=== PATIENT | female | born 1985 | race Caucasian/White ===

== ENCOUNTER 2017-03-22 21:37 | Inpatient (IN) | payer BC ==
[2017-03-23] MEDS ORDERED: Sodium Chloride 0.9% 10 ML Syringe FLUSH PRN (01:00)
[2017-03-23] MEDS ORDERED: Water For Irrigation,Sterile 1,000 ML Container IRR PRN (01:00)
[2017-03-23] MEDS ORDERED: Oxytocin/Lactated Ringers 30 UNIT/500 ML BAG IV SCH ×2 (01:00→07:45)
[2017-03-23] MEDS ORDERED: Lactated Ringers 1,000 ML IV SCH (01:00)
[2017-03-23] MEDS ORDERED: Butorphanol 1 MG/ML SDV IVPUSH PRN (01:00)
[2017-03-23] MEDS ORDERED: Nalbuphine 10 MG/1 ML Vial IVPUSH PRN (01:00)
[2017-03-23] MEDS ORDERED: Methylergonovine 0.2 MG/1 ML Amp IM PRN (01:00)
[2017-03-23] MEDS ORDERED: Misoprostol 200 MCG Tab PO PRN (01:00)
[2017-03-23] MEDS ORDERED: Lidocaine 1% 50 ML MDV INJECT PRN (01:00)
[2017-03-23] MEDS ORDERED: Carboprost Tromethamine 250 MCG/1 ML Amp IM PRN (01:00)
[2017-03-23] MEDS ORDERED: Sodium Chloride 0.9% 2.5 ML Syringe FLUSH PRN (01:00)
--- NOTE | 2017-03-23 02:09 | PCM.PREANE ---
Preanesthetic Assessment - Anesthesia/Transfusion/Family Hx Anesthesia History: Prior Anesthesia Without Reaction - Review of Systems General: No Symptoms Pulmonary: No Symptoms Cardiovascular: No Symptoms Gastrointestinal: No symptoms Neurological: No Symptoms Other: Reports: None - Physical Assessment Height: 5 ft 8 in Weight: 101.151 kg ASA Class: 2 Mental Status: Alert & Oriented x3 Airway Class: Mallampati = 2 Dentition: Reports: Normal Dentition Thyro-Mental Finger Breadths: 3 Mouth Opening Finger Breadths: 3 ROM/Head Extension: Full Lungs: Clear to auscultation, Normal respiratory effort Cardiovascular: Regular Rate, Regular Rhythm - Lab Values: Laboratory Last Values WBC 22.18 K/uL (4.0-11.0) H 03/23/17 01:08 RBC 4.45 M/uL (4.30-5.90) 03/23/17 01:08 Hgb 13.2 g/dL (12.0-16.0) 03/23/17 01:08 Hct 37.6 % (36.0-46.0) 03/23/17 01:08 MCV 84.5 fL (80.0-98.0) 03/23/17 01:08 MCH 29.7 pg (27.0-32.0) 03/23/17 01:08 MCHC 35.1 g/dL (31.0-37.0) 03/23/17 01:08 RDW Std Deviation 37.1 fl (28.0-62.0) 03/23/17 01:08 RDW Coeff of Aurelio 12 % (11.0-15.0) 03/23/17 01:08 Plt Count 193 K/uL (150-400) 03/23/17 01:08 MPV 10.00 fL (7.40-12.00) 03/23/17 01:08 - Allergies Allergies/Adverse Reactions: Allergies Allergy/AdvReac Type Severity Reaction Status Date / Time NSAIDS (Non-Steroidal Allergy Rash Verified 03/23/17 00:59 Anti-Inflamma - Acknowledgements Anesthesia Type Planned: Epidural Pt an Appropriate Candidate for the Planned Anesthesia: Yes Alternatives and Risks of Anesthesia Discussed w Pt/Guardian: Yes Pt/Guardian Understands and Agrees with Anesthesia Plan: Yes PreAnesthesia Questionnaire HEENT History: Reports: None Cardiovascular History: Reports: None Gastrointestinal History: Reports: None Genitourinary History: Reports: None 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 LMP (Approximate): Musculoskeletal History: Reports: None Neurological History: Reports: None Psychiatric History: Reports: None Endocrine/Metabolic History: Reports: Obesity/BMI 30+ Hematologic History: Reports: None Immunologic History: Reports: None Oncologic (Cancer) History: Reports: None Dermatologic History: Reports: None - Infectious Disease History Infectious Disease History: Reports: None - Past Surgical History Musculoskeletal Surgical History: Reports: Other (See Below) (Foot surgery) Dermatological Surgical History: Reports: Other (See Below) (Breast augmentation ) - CURRENT (IN HOUSE) MEDS Current Meds: Current Medications Butorphanol Tartrate (Stadol) 1 mg IVPUSH Q1H PRN PRN Reason: Pain Last Admin: 03/23/17 01:53 Dose: 1 mg Carboprost Tromethamine (Hemabate Ds) 250 mcg IM ASDIRECTED PRN PRN Reason: Post Hemorrhage Lactated Ringer's (Ringers, Lactated) 1,000 mls @ 150 mls/hr IV ASDIRECTED AIXA Lidocaine HCl (Xylocaine 1%) 50 ml INJECT .ONCE PRN PRN Reason: Laceration repair Methylergonovine Maleate (Methergine) 0.2 mg IM ASDIRECTED PRN PRN Reason: Post Hemorrhage Misoprostol (Cytotec) 200 mcg PO .ONCE PRN PRN Reason: Post Hemorrhage Nalbuphine HCl (Nubain) 10 mg IVPUSH Q1H PRN PRN Reason: Pain (severe 7-10) Stop: 03/23/17 03:01 Sodium Chloride (Saline Flush) 10 ml FLUSH ASDIRECTED PRN PRN Reason: Keep Vein Open Sodium Chloride (Saline Flush) 2.5 ml FLUSH ASDIRECTED PRN PRN Reason: Keep Vein Open Sterile Water (Sterile Water For Irrigation) 1,000 ml IRR ASDIRECTED PRN PRN Reason: delivery Discontinued Medications Oxytocin/Lactated Ringer's (Pitocin In Lr 30 Units/500 Ml) 30 unit in 500 mls @ 999 mls/hr IV TITRATE AIXA; 999 MUNITS/MIN PRN Reason: Protocol Stop: 03/23/17 01:31
[2017-03-23] MEDS ORDERED: Ropivacaine HCl/PF 100 ML ONE ×2 (02:12→09:27)
[2017-03-23] MEDS ORDERED: fentaNYL 100 MCG/2 ML SDV ONE (02:12)
[2017-03-23] MEDS ORDERED: ePHEDrine 50 MG/ML SDV ONE (06:03)
[2017-03-23] MEDS ORDERED: Acetaminophen 500 MG Tab PO ONE (11:13)
[2017-03-23] MEDS ORDERED: Bisacodyl 10 MG Supp RECTAL PRN (14:22)
[2017-03-23] MEDS ORDERED: Witch Hazel Medicated Pads 40/Jar TOP PRN (14:22)
[2017-03-23] MEDS ORDERED: Benzocaine/Menthol 20%-0.5% Spray 78 GM Cannister TOP PRN (14:22)
[2017-03-23] MEDS ORDERED: Docusate Sodium 100 MG Cap PO PRN (14:22)
[2017-03-23] MEDS: oxyCODONE 5 MG Tab PO PRN ×2 (15:42→18:37)
[2017-03-23] MEDS: Acetaminophen 500 MG Tab PO PRN ×3 (15:43→23:37)
--- NOTE | 2017-03-23 21:11 | OR ---
SURGEON: Melva Hemphill DATE OF PROCEDURE: 03/23/2017 BRIEF PREDELIVERY HISTORY: This is a 31-year-old, G1, P0, presented to Labor and Delivery at 39 weeks and 3 days with complaints of painful uterine contractions. The patient was examined initially and found to be 2 cm and then progressed to 4 cm. The patient was admitted. The patient did receive her epidural. The patient eventually attempted to do an amniotomy, which the patient was already ruptured. The patient several hours later was still 5 to 6 cm dilated with no significant cervical change. The patient was augmented with IV Pitocin. The patient eventually progressed to complete status and started maternal expulsive efforts. Of note, there was a category 1 tracing on the patient's admission and baby did well throughout labor. PREOPERATIVE DIAGNOSES: 1. Intrauterine at 39 weeks and 3 days. 2. Group B streptococcus. 3. Labor. 4. Maternal pyrexia. POSTOPERATIVE DIAGNOSES: 1. Intrauterine at 39 weeks and 3 days. 2. Deliver status. 3. Second-degree midline laceration. PROCEDURE PERFORMED: 1. Spontaneous-assisted vaginal delivery. 2. Repair of midline perineal laceration. ANESTHESIA TYPE: Epidural and local. ESTIMATED BLOOD LOSS: 125 mL. FINDINGS: A viable female in vertex presentation with Apgars of 9 and 10 at 1 and 5 minutes respectively and weight of 3340 g. Calcified intact placenta with 3- vessel cord. Midline second-degree perineal laceration. COMPLICATIONS: None known. DISPOSITION: The patient and tolerated the procedure well. DESCRIPTION OF PROCEDURE: This female under epidural anesthesia delivered a viable female infant with Apgars of 9 and 10 at 1 and 5 minutes respectively. Delivery was via SAVD and weight was 3340 g. After the delivery of the in vertex, the neck was checked. There was no nuchal to be reduced and with gentle downward traction, the anterior shoulder was delivered followed by the body. The infant was bulb suctioned at delivery and had a spontaneous cry. The was placed directly on the Mom's abdomen at maternal request. Cord was doubly clamped, cut, and cord blood was collected and sent for analysis. Of note, prior to delivery the patient's heart tracing was noted to be tachycardic in the 180s and the patient had a headache. The patient did receive 1 g of p.o. Tylenol. Of note, the patient did not have a temperature at this time. Eventually, the patient was noted to have a temperature of 100.8 immediately and the also had a temperature of 100.6. Otherwise, IV Pitocin was given as an uterotonic to prevent excessive maternal blood loss and help expel the placenta. With signs of placental separation, a fundal massage was completed in addition to traction on the umbilical cord. A normal intact placenta with 3-vessel cord was delivered. After delivery of the infant and placenta, the vagina, perineum, and rectum were explored and the patient's midline second-degree perineal laceration. The patient's perineal skin was tested to know how much sensation the patient still had left and 1% lidocaine with no epinephrine. The lidocaine had to be used to infiltrate the perineal tissues for analgesia during the repair. 3-0 Vicryl suture was used to repair the second-degree perineal laceration in a three-layer usual fashion. Afterwards, the lower uterine segment and vagina were cleared of all clots and debris. The patient was cleansed. Pads were changed and the bed was returned to functioning status. The patient and the tolerated the procedure well. Sponge, lap, needle, and instrument counts were correct. SULY / MARJORIE /[id number] ANETA
--- NOTE | 2017-03-24 07:50 | PCM48HPAN ---
Post Anesthesia Note - EVALUATION WITHIN 48HRS OF ANESTHETIC Vital Signs in Normal Range: Yes Patient Participated in Evaluation: Yes Respiratory Function Stable: Yes Airway Patent: Yes Cardiovascular Function Stable: Yes Hydration Status Stable: Yes Pain Control Satisfactory: Yes Nausea and Vomiting Control Satisfactory: Yes Mental Status Recovered: Yes
--- NOTE | 2017-03-24 10:18 | PCM.PNPP ---
- General Info Date of Service: 03/24/17 Functional Status: Reports: pain controlled, tolerating diet, ambulating, urinating - Review of Systems General: Reports: No Symptoms HEENT: Reports: no symptoms Pulmonary: Reports: no symptoms Cardiovascular: Reports: No Symptoms Gastrointestinal: Reports: No symptoms Genitourinary: Reports: no symptoms Musculoskeletal: Reports: no symptoms Skin: Reports: no symptoms Neurological: Reports: No Symptoms Psychiatric: Reports: no symptoms - General Info Date of Service: 03/24/17 - Patient Data Vital Signs - most recent: Last Vital Signs Temp 36.9 C 03/24/17 08:00 Pulse 88 03/24/17 08:00 Resp 16 03/24/17 08:00 BP 133/73 03/24/17 08:00 Pulse Ox 97 03/24/17 04:00 Weight - most recent: 101.151 kg Lab Results - last 24 hrs: Laboratory Results - last 24 hr 03/24/17 Range/Units 05:25 Hgb 11.0 L (12.0-16.0) g/dL Hct 32.4 L (36.0-46.0) % Med Orders - Current: Current Medications Acetaminophen (Tylenol Extra Strength) 500 mg PO Q4H PRN PRN Reason: Pain Last Admin: 03/23/17 18:38 Dose: 500 mg Acetaminophen (Tylenol Extra Strength) 1,000 mg PO Q4H PRN PRN Reason: Pain Last Admin: 03/23/17 23:37 Dose: 1,000 mg Benzocaine/Menthol (Dermoplast Pain Relief 20%-0.5% [place]) 78 gm TOP ASDIRECTED PRN PRN Reason: Perineal Comfort Measure Bisacodyl (Dulcolax) 10 mg RECTAL .ONCE PRN PRN Reason: Constipation Butorphanol Tartrate (Stadol) 1 mg IVPUSH Q1H PRN PRN Reason: Pain Last Admin: 03/23/17 01:53 Dose: 1 mg Carboprost Tromethamine (Hemabate Ds) 250 mcg IM ASDIRECTED PRN PRN Reason: Post Hemorrhage Docusate Sodium (Colace) 100 mg PO BID PRN PRN Reason: Constipation Emollient Ointment (Lansinoh Hpa) 0 gm TOP ASDIRECTED PRN PRN Reason: Sore Nipples Lactated Ringer's (Ringers, Lactated) 1,000 mls @ 150 mls/hr IV ASDIRECTED AIXA Last Admin: 03/23/17 01:36 Dose: 150 mls/hr Oxytocin/Lactated Ringer's (Pitocin In Lr 30 Units/500 Ml) 30 unit in 500 mls @ 2 mls/hr IV TITRATE AIXA; 2 MUNITS/MIN PRN Reason: Protocol Last Titration: 03/23/17 13:19 Dose: 500 munits/min, 500 mls/hr Lidocaine HCl (Xylocaine 1%) 50 ml INJECT .ONCE PRN PRN Reason: Laceration repair Last Admin: 03/23/17 13:25 Dose: 50 ml Methylergonovine Maleate (Methergine) 0.2 mg IM ASDIRECTED PRN PRN Reason: Post Hemorrhage Misoprostol (Cytotec) 200 mcg PO .ONCE PRN PRN Reason: Post Hemorrhage Oxycodone HCl (Oxycodone) 5 mg PO Q2H PRN PRN Reason: Pain Last Admin: 03/23/17 18:37 Dose: 5 mg Sodium Chloride (Saline Flush) 10 ml FLUSH ASDIRECTED PRN PRN Reason: Keep Vein Open Sodium Chloride (Saline Flush) 2.5 ml FLUSH ASDIRECTED PRN PRN Reason: Keep Vein Open Sterile Water (Sterile Water For Irrigation) 1,000 ml IRR ASDIRECTED PRN PRN Reason: delivery Last Admin: 03/23/17 13:15 Dose: 1,000 ml Witch Jennifer (Tucks) 1 pad TOP ASDIRECTED PRN PRN Reason: comfort care Discontinued Medications Acetaminophen (Tylenol Extra Strength) 1,000 mg PO ONETIME ONE Stop: 03/23/17 11:14 Last Admin: 03/23/17 11:31 Dose: 1,000 mg Ephedrine Sulfate (Ephedrine Sulfate) Confirm Administered Dose 50 mg .ROUTE .STK-MED ONE Stop: 03/23/17 06:04 Fentanyl (Sublimaze) Confirm Administered Dose 100 mcg .ROUTE .STK-MED ONE Stop: 03/23/17 02:13 Oxytocin/Lactated Ringer's (Pitocin In Lr 30 Units/500 Ml) 30 unit in 500 mls @ 999 mls/hr IV TITRATE AIXA; 999 MUNITS/MIN PRN Reason: Protocol Stop: 03/23/17 01:31 Ropivacaine (Naropin 0.2%) Confirm Administered Dose 100 mls @ as directed .ROUTE .STK-MED ONE Stop: 03/23/17 02:13 Ropivacaine (Naropin 0.2%) Confirm Administered Dose 100 mls @ as directed .ROUTE .STK-MED ONE Stop: 03/23/17 09:28 Nalbuphine HCl (Nubain) 10 mg IVPUSH Q1H PRN PRN Reason: Pain (severe 7-10) Stop: 03/23/17 03:01 - Infant Interaction Infant Disposition, : [place] at Bedside Interaction: Holding Infant Feeding: Attempted ; Nursed Fair/Poor Support Person: - Recovery Exam Fundal Tone: Firm Fundal Level: At Umbilicus Fundal Placement: Midline Lochia Amount: Scant Lochia Color: Rubra/Red Perineum Description: Intact, Minimal Bruising/Swelling Episiotomy/Laceration: Approximated Bladder Status: Voiding Urinary Elimination: Voided - Exam General: alert, oriented Neck: supple Lungs: Clear to auscultation, Normal respiratory effort Cardiovascular: Regular Rate, Regular Rhythm Abdomen: bowel sounds present, soft, no tenderness Extremities: no calf tenderness Skin: warm, dry, intact Neurological: no new focal deficit Psy/Mental Status: alert, normal affect, normal mood - Problem List & Annotations (1) Vaginal delivery SNOMED Code(s): 942209579 Code(s): O80 - ENCOUNTER FOR FULL-TERM UNCOMPLICATED DELIVERY Status: Acute Current Visit: Yes - Problem List Review Problem List Initiated/Reviewed/Updated: Yes - My Orders Last 24 Hours: My Active Orders 03/23/17 14:22 Patient Status [ADT] Routine May Shower [RC] ASDIRECTED Up ad [place] [RC] ASDIRECTED Vital Signs [RC] PER UNIT ROUTINE Acetaminophen [Tylenol Extra Strength] 1,000 mg PO Q4H PRN Acetaminophen [Tylenol Extra Strength] 500 mg PO Q4H PRN Benzocaine/Menthol [Dermoplast Pain Relief 20%-0.5% [place]] 78 gm TOP ASDIRECTED PRN Bisacodyl [Dulcolax] 10 mg RECTAL .ONCE PRN Docusate Sodium [Colace] 100 mg PO BID PRN Lanolin [Lansinoh HPA] See Dose Instructions TOP ASDIRECTED PRN Puma Rodriguez [Tucks] 1 pad TOP ASDIRECTED PRN oxyCODONE 5 mg PO Q2H PRN Assess Lochia [WOMSER] Per Unit Routine Assess Uterine Involution [WOMSER] Per Unit Routine Breast Pump [WOMSER] Per Unit Routine Peripheral IV Discontinue [OM.PC] Routine 03/23/17 14:23 Ice Therapy [OM.PC] Per Unit Routine Perineal Care [OM.PC] Per Unit Routine Sitz Bath [OM.PC] Per Unit Routine 03/23/17 Lunch Regular Diet [DIET] - Assessment Assessment:: PPD#1 S/p SAVD w/ maternal pyrexia Doing well Breast feeding Anticipate discharge home tomorrow 2nd to being on IV abx - Plan Plan:: Increase ambulation Routine ppc
[2017-03-24] MEDS: Acetaminophen 500 MG Tab PO PRN ×2 (12:14→17:58)
[2017-03-24] MEDS: oxyCODONE 5 MG Tab PO PRN (17:57)
[2017-03-25] MEDS: Lanolin 100% Cream 7 GM Tube TOP PRN ×2 (04:35→11:58)
--- NOTE | 2017-03-25 08:38 | PCM.PNPP ---
- General Info Functional Status: Reports: pain controlled, tolerating diet, ambulating, urinating - Review of Systems General: Reports: No Symptoms HEENT: Reports: no symptoms Pulmonary: Reports: no symptoms Cardiovascular: Reports: No Symptoms Gastrointestinal: Reports: No symptoms Genitourinary: Reports: no symptoms Musculoskeletal: Reports: no symptoms Skin: Reports: no symptoms Neurological: Reports: No Symptoms Psychiatric: Reports: no symptoms - Patient Data Vital Signs - most recent: Last Vital Signs Temp 36.4 C 03/25/17 04:00 Pulse 77 03/25/17 04:00 Resp 15 03/25/17 04:00 BP 125/60 03/25/17 04:00 Pulse Ox 97 03/25/17 04:00 Weight - most recent: 101.151 kg Med Orders - Current: Current Medications Acetaminophen (Tylenol Extra Strength) 500 mg PO Q4H PRN PRN Reason: Pain Last Admin: 03/24/17 17:58 Dose: 500 mg Acetaminophen (Tylenol Extra Strength) 1,000 mg PO Q4H PRN PRN Reason: Pain Last Admin: 03/24/17 12:14 Dose: 1,000 mg Benzocaine/Menthol (Dermoplast Pain Relief 20%-0.5% [place]) 78 gm TOP ASDIRECTED PRN PRN Reason: Perineal Comfort Measure Bisacodyl (Dulcolax) 10 mg RECTAL .ONCE PRN PRN Reason: Constipation Butorphanol Tartrate (Stadol) 1 mg IVPUSH Q1H PRN PRN Reason: Pain Last Admin: 03/23/17 01:53 Dose: 1 mg Carboprost Tromethamine (Hemabate Ds) 250 mcg IM ASDIRECTED PRN PRN Reason: Post Hemorrhage Docusate Sodium (Colace) 100 mg PO BID PRN PRN Reason: Constipation Emollient Ointment (Lansinoh Hpa) 0 gm TOP ASDIRECTED PRN PRN Reason: Sore Nipples Last Admin: 03/25/17 04:35 Dose: 1 tube Lactated Ringer's (Ringers, Lactated) 1,000 mls @ 150 mls/hr IV ASDIRECTED AIXA Last Admin: 03/23/17 01:36 Dose: 150 mls/hr Oxytocin/Lactated Ringer's (Pitocin In Lr 30 Units/500 Ml) 30 unit in 500 mls @ 2 mls/hr IV TITRATE AIXA; 2 MUNITS/MIN PRN Reason: Protocol Last Titration: 03/23/17 13:19 Dose: 500 munits/min, 500 mls/hr Lidocaine HCl (Xylocaine 1%) 50 ml INJECT .ONCE PRN PRN Reason: Laceration repair Last Admin: 03/23/17 13:25 Dose: 50 ml Methylergonovine Maleate (Methergine) 0.2 mg IM ASDIRECTED PRN PRN Reason: Post Hemorrhage Misoprostol (Cytotec) 200 mcg PO .ONCE PRN PRN Reason: Post Hemorrhage Oxycodone HCl (Oxycodone) 5 mg PO Q2H PRN PRN Reason: Pain Last Admin: 03/24/17 17:57 Dose: 5 mg Sodium Chloride (Saline Flush) 10 ml FLUSH ASDIRECTED PRN PRN Reason: Keep Vein Open Sodium Chloride (Saline Flush) 2.5 ml FLUSH ASDIRECTED PRN PRN Reason: Keep Vein Open Sterile Water (Sterile Water For Irrigation) 1,000 ml IRR ASDIRECTED PRN PRN Reason: delivery Last Admin: 03/23/17 13:15 Dose: 1,000 ml Witch Jennifer (Tucks) 1 pad TOP ASDIRECTED PRN PRN Reason: comfort care Discontinued Medications Acetaminophen (Tylenol Extra Strength) 1,000 mg PO ONETIME ONE Stop: 03/23/17 11:14 Last Admin: 03/23/17 11:31 Dose: 1,000 mg Ephedrine Sulfate (Ephedrine Sulfate) Confirm Administered Dose 50 mg .ROUTE .STK-MED ONE Stop: 03/23/17 06:04 Fentanyl (Sublimaze) Confirm Administered Dose 100 mcg .ROUTE .STK-MED ONE Stop: 03/23/17 02:13 Oxytocin/Lactated Ringer's (Pitocin In Lr 30 Units/500 Ml) 30 unit in 500 mls @ 999 mls/hr IV TITRATE AIXA; 999 MUNITS/MIN PRN Reason: Protocol Stop: 03/23/17 01:31 Ropivacaine (Naropin 0.2%) Confirm Administered Dose 100 mls @ as directed .ROUTE .STK-MED ONE Stop: 03/23/17 02:13 Ropivacaine (Naropin 0.2%) Confirm Administered Dose 100 mls @ as directed .ROUTE .STK-MED ONE Stop: 03/23/17 09:28 Nalbuphine HCl (Nubain) 10 mg IVPUSH Q1H PRN PRN Reason: Pain (severe 7-10) Stop: 03/23/17 03:01 - Infant Interaction Disposition, : [place] at Bedside Interaction: Holding Feeding: Attempted ; Nursed Fair/Poor Support Person: - Recovery Exam Fundal Tone: Firm Fundal Level: 1 Fingerbreadths Below Umbilicus Fundal Placement: Midline Lochia Amount: Scant Lochia Color: Rubra/Red Perineum Description: Intact, Minimal Bruising/Swelling Episiotomy/Laceration: Approximated Bladder Status: Voiding Urinary Elimination: Voided - Exam General: alert, oriented HEENT: Pupils equal Neck: supple Lungs: Normal respiratory effort Abdomen: soft, no tenderness, no distension Extremities: No: no edema (trace) Skin: warm, dry, intact Neurological: no new focal deficit Psy/Mental Status: alert, normal affect, normal mood - Problem List & Annotations (1) Vaginal delivery SNOMED Code(s): 653052651 Code(s): O80 - ENCOUNTER FOR FULL-TERM UNCOMPLICATED DELIVERY Status: Acute Current Visit: Yes - Problem List Review Problem List Initiated/Reviewed/Updated: Yes - Assessment Assessment:: PPD#2 after vaginal delivery. Stable, afebrile since immediate period , is going well, minimal lochia. Waiting on cultures for baby, so will discharge her to a parent room today as cultures will not be back until tomorrow am. - Plan Plan:: Discharge instructions reviewed. Reviewed normal mood changes and she will call if she has any concerns regarding depression.
[2017-03-25] MEDS: oxyCODONE 5 MG Tab PO PRN (11:47)
[2017-03-25] MEDS: Acetaminophen 500 MG Tab PO PRN (11:48)
[2017-03-25 13:11] VITALS: BP 128/73
== END 2017-03-25 16:35 | disposition home or self-care (01) | DRG 560 ==
LOC: MW.OBCHECK 21:37 → MW.OB 21:38 → MW.OBCHECK 03-23 01:00 → OBSVTOIN 03-23 13:17 → MW.OB 03-23 20:32
PROVIDERS: ADMIT Obstetrics & Gynecology; ATTEND Obstetrics & Gynecology
PROC: 10E0XZZ Delivery of Products of Conception, External Approach (ICD-10-PCS; principal; 2017-03-23)
PROC: 0KQM0ZZ Repair Perineum Muscle, Open Approach (ICD-10-PCS; 2017-03-23)
DX: O70.1 Second degree perineal laceration during delivery (principal); O75.2 Pyrexia during labor, not elsewhere classified; Z3A.39 39 weeks gestation of pregnancy; Z37.0 Single live birth
CPT/HCPCS: 01967; 01996; 36415; 59025; 85014; 85018; 85027; 86850; 86900; 86901; A9270-GY; J0595; J7120

== ENCOUNTER 2019-03-25 19:12 | Inpatient (IN) | payer BC ==
[2019-03-25] MEDS ORDERED: Sodium Chloride 0.9% 2.5 ML Syringe FLUSH PRN (19:35)
[2019-03-25] MEDS ORDERED: Butorphanol 1 MG/ML SDV IVPUSH PRN (19:35)
[2019-03-25] MEDS ORDERED: Sodium Chloride 0.9% 10 ML Syringe FLUSH PRN (19:35)
[2019-03-25] MEDS ORDERED: Lidocaine 1% 50 ML MDV INJECT PRN (19:35)
[2019-03-25] MEDS ORDERED: Terbutaline 1 MG/ML SDV SUBCUT PRN (19:35)
[2019-03-25] MEDS ORDERED: Water For Irrigation,Sterile 1,000 ML Container IRR PRN (19:35)
[2019-03-25] MEDS ORDERED: Misoprostol 200 MCG Tab PO PRN (19:35)
[2019-03-25] MEDS ORDERED: Carboprost Tromethamine 250 MCG/1 ML Amp IM PRN (19:35)
[2019-03-25] MEDS ORDERED: Misoprostol 25 MCG (1/4 of 100 MCG) Tab VAG PRN (19:35)
[2019-03-25] MEDS ORDERED: Methylergonovine 0.2 MG/1 ML Amp IM PRN (19:35)
[2019-03-25] MEDS ORDERED: Nalbuphine 10 MG/1 ML Vial IVPUSH PRN (19:35)
[2019-03-25] MEDS ORDERED: Tranexamic Acid 1,000 MG in Sodium Chloride 0.9% 100 ML IV PRN (19:35)
[2019-03-25] MEDS ORDERED: Sodium Chloride 0.9% 10 ML SDV IV PRN (19:35)
[2019-03-25] MEDS ORDERED: Ondansetron 4 MG/2 ML SDV IVPUSH PRN (19:35)
[2019-03-25] MEDS ORDERED: Oxytocin/0.9 % Sodium Chloride 30 UNIT/500 ML BAG IV SCH ×2 (19:45)
[2019-03-26] MEDS: Lactated Ringers 1,000 ML IV SCH ×3 (03:30→06:10)
[2019-03-26] MEDS ORDERED: fentaNYL 100 MCG/2 ML SDV ONE (04:46)
[2019-03-26] MEDS ORDERED: Lidocaine HCl/EPINEPHrine 5 ML IJ ONE (04:47)
[2019-03-26] MEDS ORDERED: Ropivacaine 0.2% 2 MG/ML 20 ML SDV ONE ×2 (04:47→10:58)
[2019-03-26] MEDS ORDERED: Ropivacaine HCl/PF 100 ML ONE (04:47)
--- NOTE | 2019-03-26 05:39 | PCM.PREANE ---
Preanesthetic Assessment - Anesthesia/Transfusion/Family Hx Anesthesia History: Prior Anesthesia Without Reaction Family History of Anesthesia Reaction: No Transfusion History: No Prior Transfusion(s) Intubation History: Unknown - Review of Systems General: No Symptoms Pulmonary: No Symptoms Cardiovascular: No Symptoms Gastrointestinal: No Symptoms Neurological: No Symptoms Other: Reports: None - Physical Assessment NPO Status Date: 03/26/19 NPO Status Time: 05:00 (Clear Liquids) Pulse: 88 O2 Sat by Pulse Oximetry: 98 Respiratory Rate: 20 Blood Pressure: 111/68 Height: 1.73 m Weight: 101.151 kg ASA Class: 2 Mental Status: Alert & Oriented x3 Airway Class: Mallampati = 2 Dentition: Reports: Normal Dentition Thyro-Mental Finger Breadths: 3 Mouth Opening Finger Breadths: 3 ROM/Head Extension: Full Lungs: Clear to Auscultation Cardiovascular: Regular Rate - Lab Values: Laboratory Last Values WBC 11.95 K/uL (4.0-11.0) H 03/25/19 20:13 RBC 4.28 M/uL (4.30-5.90) L 03/25/19 20:13 Hgb 12.5 g/dL (12.0-16.0) 03/25/19 20:13 Hct 37.2 % (36.0-46.0) 03/25/19 20:13 MCV 86.9 fL (80.0-98.0) 03/25/19 20:13 MCH 29.2 pg (27.0-32.0) 03/25/19 20:13 MCHC 33.6 g/dL (31.0-37.0) 03/25/19 20:13 RDW Std Deviation 40.6 fl (28.0-62.0) 03/25/19 20:13 RDW Coeff of Aurelio 13 % (11.0-15.0) 03/25/19 20:13 Plt Count 190 K/uL (150-400) 03/25/19 20:13 MPV 10.30 fL (7.40-12.00) 03/25/19 20:13 Nucleated RBC % 0.0 /100WBC 03/25/19 20:13 Nucleated RBCs # 0 K/uL 03/25/19 20:13 Blood Type A POSITIVE 03/25/19 20:13 Antibody Screen NEGATIVE 03/25/19 20:13 - Allergies Allergies/Adverse Reactions: Allergies Allergy/AdvReac Type Severity Reaction Status Date / Time NSAIDS (Non-Steroidal Allergy Renal Verified 03/25/19 19:31 Anti-Inflamma Failure - Blood Blood Available: No - Anesthesia Plan Pre-Op Medication Ordered: None - Acknowledgements Anesthesia Type Planned: Epidural Pt an Appropriate Candidate for the Planned Anesthesia: Yes Alternatives and Risks of Anesthesia Discussed w Pt/Guardian: Yes Pt/Guardian Understands and Agrees with Anesthesia Plan: Yes Additional Comments: acceptable patient for procedure. PreAnesthesia Questionnaire HEENT History: Reports: Other (See Below) Other HEENT History: recurrent sinus infection or possible TMJ Cardiovascular History: Reports: None Respiratory History: Reports: Asthma, Other (See Below) Other Respiratory History: pt states when she stopped smoking her wheezing stopped so the doctor told her she probably never had asthma. Gastrointestinal History: Reports: None Genitourinary History: Reports: Acute Renal Failure Other Genitourinary History: Pt verbalized 50% kidney failure from torodol. allergy noted for nsaids. 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: Musculoskeletal History: Reports: None Neurological History: Reports: None Psychiatric History: Reports: Depression Endocrine/Metabolic History: Reports: Obesity/BMI 30+ Hematologic History: Reports: None Immunologic History: Reports: None Oncologic (Cancer) History: Reports: None Dermatologic History: Reports: None - Infectious Disease History Infectious Disease History: Reports: None - Past Surgical History Head Surgeries/Procedures: Reports: None HEENT Surgical History: Reports: Oral Surgery Respiratory Surgical History: Reports: None Female Surgical History: Reports: None Musculoskeletal Surgical History: Reports: Other (See Below) Other Musculoskeletal Surgeries/Procedures:: bunionectomy; removal of screws - SUBSTANCE USE Smoking Status *Q: Former Smoker Tobacco Use Within Last Twelve Months: No Recreational Drug Use History: No - HOME MEDS Home Medications: Home Meds Lansoprazole [Prevacid] 1 cap PO DAILY 03/25/19 [History] PNV95/Ferrous Fumarate/FA [ Tablet] 1 tab PO DAILY 03/25/19 [History] - CURRENT (IN HOUSE) MEDS Current Meds: Current Medications Butorphanol Tartrate (Stadol) 1 mg IVPUSH Q1H PRN PRN Reason: Pain Carboprost Tromethamine (Hemabate Ds) 250 mcg IM ASDIRECTED PRN PRN Reason: Post Hemorrhage Lactated Ringer's (Ringers, Lactated) 1,000 mls @ 150 mls/hr IV ASDIRECTED AIXA Last Admin: 03/26/19 05:06 Dose: 999 mls/hr Oxytocin/Sodium Chloride (Oxytocin 30 Unit/500 Ml-Ns) 30 unit in 500 mls @ 999 mls/hr IV TITRATE AIXA Oxytocin/Sodium Chloride (Oxytocin 30 Unit/500 Ml-Ns) 30 unit in 500 mls @ 2 mls/hr IV TITRATE AIXA; Protocol Last Titration: 03/26/19 04:26 Dose: 6 munits/min, 6 mls/hr Tranexamic Acid 1,000 mg/ (Sodium Chloride) 110 mls @ 660 mls/hr IV ONETIME PRN PRN Reason: Bleeding Lidocaine HCl (Xylocaine 1%) 50 ml INJECT ONETIME PRN PRN Reason: Laceration repair Methylergonovine Maleate (Methergine) 0.2 mg IM ASDIRECTED PRN PRN Reason: Post Hemorrhage Misoprostol (Cytotec) 200 mcg PO ONETIME PRN PRN Reason: Post Hemorrhage Misoprostol (Cytotec) 25 mcg VAG Q6H PRN PRN Reason: Cervical Ripening Last Admin: 03/25/19 20:49 Dose: 25 mcg Nalbuphine HCl (Nubain) 10 mg IVPUSH Q1H PRN PRN Reason: Pain (severe 7-10) Ondansetron HCl (Zofran) 4 mg IVPUSH Q6H PRN PRN Reason: Nausea/Vomiting Sodium Chloride (Saline Flush) 10 ml FLUSH ASDIRECTED PRN PRN Reason: Keep Vein Open Sodium Chloride (Saline Flush) 2.5 ml FLUSH ASDIRECTED PRN PRN Reason: Keep Vein Open Sodium Chloride (Normal Saline) 10 ml IV ASDIRECTED PRN PRN Reason: IV Use Sterile Water (Sterile Water For Irrigation) 1,000 ml IRR ASDIRECTED PRN PRN Reason: delivery Terbutaline Sulfate (Brethine) 0.25 mg SUBCUT ASDIRECTED PRN PRN Reason: Tacysystole Discontinued Medications Fentanyl (Sublimaze) Confirm Administered Dose 100 mcg .ROUTE .K-MED ONE Stop: 03/26/19 04:47 Ropivacaine (Naropin 0.2%) Confirm Administered Dose 100 mls @ as directed .ROUTE .STK-MED ONE Stop: 03/26/19 04:48 Lidocaine/Epinephrine (Lidocaine 1.5%-Epi 1:200,000) Confirm Administered Dose 5 ml IJ .STK-MED ONE Stop: 03/26/19 04:48 Ropivacaine (Naropin 0.2%) Confirm Administered Dose 20 ml .ROUTE .STK-MED ONE Stop: 03/26/19 04:48
--- NOTE | 2019-03-26 06:03 | PCM.SN ---
- Free Text/Narrative Note: Requested for labor epidural. Active labor. 3-4cm. Contractions ~2-3 minutes. Discussed, ? answered, chart reviewed. Fluid flush in progress. Prep with chloroprep 0456: Skin local 1% lidocaine 5ml @ L3-4. 0457: Needle inserted. Epidural space ID'd with air/saline on first pass via CHLOÉ. 3ml saline flush. 0459: Catheter to 8cm with ease. Occlusive drsg applied. Taped securely. 0508: Test dose with 5ml 1.5% Lidocaine with 1:200K epi added. TEST Negative 0513-20: Bolus given 10ml 0.2% Naropin with 2mcg/ml Fentanly added. Pain down to ~2 5 minutes post bolus. 05:50 Pump stared 8.0ml/hr, bolus 4ml/q20min Pain currently 0-1. Tolerated procedure well. No problems noted at present.
--- NOTE | 2019-03-26 11:20 | PCM.SN ---
- Free Text/Narrative Note: Patient doing well except increasing pain and back labor. Using bolus. Naropin 0.2% 8ml given with some resolve. Gtt increase to 10ml/hr, bolus to q15m. BP 140/90 down to 111/68, after 10 minutes. Pt checked. Complete. Will start pushing. No problems noted.
[2019-03-26] MEDS ORDERED: oxyCODONE 5 MG Tab PO PRN (12:06)
[2019-03-26] MEDS ORDERED: Docusate Sodium 100 MG Cap PO PRN (12:06)
[2019-03-26] MEDS ORDERED: Benzocaine/Menthol 20%-0.5% Spray 78 GM Cannister TOP PRN (12:06)
[2019-03-26] MEDS ORDERED: Aluminum Hydroxide/Magnesium Hydroxide/Simethicone Susp 30 ML Cup PO PRN (12:06)
[2019-03-26] MEDS ORDERED: Bisacodyl 10 MG Supp RECTAL PRN (12:06)
[2019-03-26] MEDS ORDERED: Witch Hazel Medicated Pads 40/Jar TOP PRN (12:06)
[2019-03-26] MEDS ORDERED: Acetaminophen 500 MG Tab PO PRN (12:06)
[2019-03-26] MEDS ORDERED: Lanolin 100% Cream 7 GM Tube TOP PRN (12:06)
--- NOTE | 2019-03-26 12:13 | PCM.OPNOTE ---
- General Post-Op/Procedure Note Date of Surgery/Procedure: 03/26/19 Operative Procedure(s): /IP Findings: Viable male APGARs 9, 9 weight pending. Spontaneous delivery intact placenta with 3V cord. Pre Op Diagnosis: 38 week IUP. dysrhythmia Post-Op Diagnosis: Same Anesthesia Technique: Epidural Primary Surgeon: Yasmine Baeza EBL in mLs: 250 Complications: none known Condition: Good Free Text/Narrative:: Dictation [id number]
--- NOTE | 2019-03-26 12:55 | OR ---
SURGEON: Yasmine Baeza M.D. DATE OF PROCEDURE: 03/26/2019 PREOPERATIVE DIAGNOSES: 1. 38-week intrauterine . 2. dysrhythmia. POSTOPERATIVE DIAGNOSES: 1. 38-week intrauterine . 2. dysrhythmia. PROCEDURE: Spontaneous vaginal delivery, intact perineum. PRIMARY SURGEON: Yasmine Baeza M.D. ANESTHESIA: Epidural. ESTIMATED BLOOD LOSS: 250 mL. COMPLICATIONS: None known. FINDINGS: Viable male, score of 9 at 1 minute and 9 at 5 minute. Weight is pending. Spontaneous delivery, intact placenta, 3-vessel cord. No dysrhythmia is auscultated after delivery of . DISPOSITION: Infant to nursery, mom in LDRP. DESCRIPTION OF PROCEDURE: Manuela is a 33-year-old G2, P1, at 38 weeks gestational age, who presents after being evaluated outpatient on 03/25/2019 and NST had marked variability with dysrhythmia. Therefore, she was admitted, routine labs drawn. IV hydration was initiated and induction was initiated. By the following morning on 03/26/2019, the patient was comfortable with epidural. Clear fluid returned with amniotomy and was found to be 5 cm. I assumed care shortly after 8 a.m. The patient progressed to 8 cm and then quickly to complete 100% effaced, +2 station shortly after 11 a.m. Heart tones were in the 110s to 120s with good variability. Upon my arrival, patient was placed in modified dorsal lithotomy position, was prepped and draped in the usual aseptic manner. Began pushing efforts and pushed adequately to a +4 station followed by delivery of the infant's head, anterior shoulder, posterior shoulder, and remainder of the body without difficulty. The infant's oropharynx and nares bulb suctioned. The infant was handed off to his mother with attending nursing staff at side. After delay, cord was clamped x2 and cut. Cord arterial, cord venous, cord blood sampling obtained. Light pressure was applied. The placenta was delivered spontaneously intact. Vigorous fundal uterine massage was then applied while 30 units of Pitocin was delivered in 500 mL of IV fluid. Upon inspection of cervix, vaginal sidewalls, and perineum, these were found to be intact. The patient has tolerated the procedure well. Sponge count and instrument count were correct. The patient remained in LDRP, infant to nursery. JERROD / MARJORIE /[id number]
[2019-03-26] MEDS: Acetaminophen/HYDROcodone 325-5 MG Tab PO PRN (15:53)
[2019-03-26] MEDS: Acetaminophen 500 MG Tab PO PRN (21:16)
[2019-03-27] MEDS: Acetaminophen/HYDROcodone 325-5 MG Tab PO PRN ×2 (00:07→22:25)
[2019-03-27] MEDS: Acetaminophen 500 MG Tab PO PRN ×3 (04:39→17:02)
--- NOTE | 2019-03-27 07:57 | PCM.PNPP ---
- General Info Date of Service: 03/27/19 Functional Status: Reports: Pain Controlled, Tolerating Diet, Ambulating, Urinating - Review of Systems General: Reports: No Symptoms HEENT: Reports: No Symptoms Pulmonary: Reports: No Symptoms Cardiovascular: Reports: No Symptoms Gastrointestinal: Reports: No Symptoms Genitourinary: Reports: No Symptoms Musculoskeletal: Reports: No Symptoms Skin: Reports: No Symptoms Neurological: Reports: No Symptoms Psychiatric: Reports: No Symptoms - General Info Date of Service: 03/27/19 - Patient Data Vital Signs - Most Recent: Last Vital Signs Temp 36.6 C 03/27/19 04:38 Pulse 66 03/27/19 04:38 Resp 16 03/27/19 04:38 BP 117/55 L 03/27/19 04:38 Pulse Ox 95 03/27/19 04:38 Weight - Most Recent: 101.151 kg Lab Results - Last 24 Hours: Laboratory Results - last 24 hr 03/26/19 03/27/19 Range/Units 11:49 05:50 Hgb 11.3 L (12.0-16.0) g/dL Hct 33.3 L (36.0-46.0) % Cord ABG pH 7.161 L (7.18-7.38) Cord ABG Base Excess -8 (-10--2) Cord VBG pH 7.279 (7.25-7.45) Cord VBG Base Excess -8 (-10--2) Med Orders - Current: Current Medications Acetaminophen (Tylenol Extra Strength) 500 mg PO Q4H PRN PRN Reason: Pain Last Admin: 03/26/19 14:00 Dose: 500 mg Acetaminophen (Tylenol Extra Strength) 1,000 mg PO Q4H PRN PRN Reason: Pain Last Admin: 03/27/19 04:39 Dose: 1,000 mg Hydrocodone Bitart/Acetaminophen ([place] 325-5 Mg) 1 tab PO Q6H PRN PRN Reason: Pain (moderate 4-6) Last Admin: 03/27/19 00:07 Dose: 1 tab Al Hydroxide/Mg Hydroxide (Mag-Al Plus) 30 ml PO Q8H PRN PRN Reason: Heartburn Benzocaine/Menthol (Dermoplast Pain Relief 20%-0.5% [place]) 78 gm TOP ASDIRECTED PRN PRN Reason: Perineal Comfort Measure Last Admin: 03/26/19 13:59 Dose: 1 can Bisacodyl (Dulcolax) 10 mg RECTAL ONETIME PRN PRN Reason: Constipation Docusate Sodium (Colace) 100 mg PO BID PRN PRN Reason: Constipation Emollient Ointment (Lansinoh Hpa) 0 gm TOP ASDIRECTED PRN PRN Reason: Sore Nipples Last Admin: 03/27/19 00:08 Dose: 7 gm Ondansetron HCl (Zofran) 4 mg IVPUSH Q6H PRN PRN Reason: Nausea/Vomiting Witch Jennifer (Tucks) 1 pad TOP ASDIRECTED PRN PRN Reason: comfort care Last Admin: 03/26/19 13:59 Dose: 1 tub Discontinued Medications Butorphanol Tartrate (Stadol) 1 mg IVPUSH Q1H PRN PRN Reason: Pain Carboprost Tromethamine (Hemabate Ds) 250 mcg IM ASDIRECTED PRN PRN Reason: Post Hemorrhage Fentanyl (Sublimaze) Confirm Administered Dose 100 mcg .ROUTE .[employer] ONE Stop: 03/26/19 04:47 Last Admin: 03/26/19 05:40 Dose: Not Given Lactated Ringer's (Ringers, Lactated) 1,000 mls @ 150 mls/hr IV ASDIRECTED AIXA Last Admin: 03/26/19 06:10 Dose: 150 mls/hr Oxytocin/Sodium Chloride (Oxytocin 30 Unit/500 Ml-Ns) 30 unit in 500 mls @ 999 mls/hr IV TITRATE AIXA Oxytocin/Sodium Chloride (Oxytocin 30 Unit/500 Ml-Ns) 30 unit in 500 mls @ 2 mls/hr IV TITRATE AIXA; Protocol Last Titration: 03/26/19 07:08 Dose: 12 munits/min, 12 mls/hr Tranexamic Acid 1,000 mg/ (Sodium Chloride) 110 mls @ 660 mls/hr IV ONETIME PRN PRN Reason: Bleeding Ropivacaine (Naropin 0.2%) Confirm Administered Dose 100 mls @ as directed .ROUTE .[employer] ONE Stop: 03/26/19 04:48 Last Admin: 03/26/19 05:40 Dose: Not Given Lidocaine HCl (Xylocaine 1%) 50 ml INJECT ONETIME PRN PRN Reason: Laceration repair Lidocaine/Epinephrine (Lidocaine 1.5%-Epi 1:200,000) Confirm Administered Dose 5 ml IJ .STK-MED ONE Stop: 03/26/19 04:48 Last Admin: 03/26/19 05:40 Dose: Not Given Methylergonovine Maleate (Methergine) 0.2 mg IM ASDIRECTED PRN PRN Reason: Post Hemorrhage Misoprostol (Cytotec) 200 mcg PO ONETIME PRN PRN Reason: Post Hemorrhage Misoprostol (Cytotec) 25 mcg VAG Q6H PRN PRN Reason: Cervical Ripening Last Admin: 03/25/19 20:49 Dose: 25 mcg Nalbuphine HCl (Nubain) 10 mg IVPUSH Q1H PRN PRN Reason: Pain (severe 7-10) Oxycodone HCl (Oxycodone) 5 mg PO Q2H PRN PRN Reason: Pain Last Admin: 03/26/19 14:00 Dose: 5 mg Ropivacaine (Naropin 0.2%) Confirm Administered Dose 20 ml .ROUTE .[employer]-[facility] ONE Stop: 03/26/19 04:48 Last Admin: 03/26/19 05:40 Dose: Not Given Ropivacaine (Naropin 0.2%) Confirm Administered Dose 20 ml .ROUTE .[employer]-[facility] ONE Stop: 03/26/19 10:59 Sodium Chloride (Saline Flush) 10 ml FLUSH ASDIRECTED PRN PRN Reason: Keep Vein Open Sodium Chloride (Saline Flush) 2.5 ml FLUSH ASDIRECTED PRN PRN Reason: Keep Vein Open Sodium Chloride (Normal Saline) 10 ml IV ASDIRECTED PRN PRN Reason: IV Use Sterile Water (Sterile Water For Irrigation) 1,000 ml IRR ASDIRECTED PRN PRN Reason: delivery Terbutaline Sulfate (Brethine) 0.25 mg SUBCUT ASDIRECTED PRN PRN Reason: Tacysystole - Interaction Disposition, : [place] in Room with Family Interaction: Holding Infant Feeding: Breastfed ; Nursed Well Support Person: - Recovery Exam Fundal Tone: Firm Fundal Level: At Umbilicus Fundal Placement: Midline Lochia Amount: Scant Lochia Color: Rubra/Red Perineum Description: Intact, Minimal Bruising/Swelling Episiotomy/Laceration: None Bladder Status: Voiding Urinary Elimination: Voided - Exam General: Alert, Oriented HEENT: Pupils Equal Neck: Supple Lungs: Clear to Auscultation, Normal Respiratory Effort Cardiovascular: Regular Rate, Regular Rhythm GI/Abdominal Exam: Normal Bowel Sounds, Soft, Non-Tender, No Organomegaly, No Mass Extremities: Normal Inspection, Normal Range of Motion, Non-Tender Skin: Warm, Dry, Intact Psy/Mental Status: Alert, Normal Affect, Normal Mood - Problem List & Annotations (1) Vaginal delivery SNOMED Code(s): 645140278 Code(s): O80 - ENCOUNTER FOR FULL-TERM UNCOMPLICATED DELIVERY Status: Acute Current Visit: No - Problem List Review Problem List Initiated/Reviewed/Updated: Yes - My Orders Last 24 Hours: PPD#1 after stable, minimal lochia,minimal pain. Would like to stay until tomorrow as she is working on . - Assessment Assessment:: discharge instructions reviewed. Continue care.
[2019-03-27 21:07] VITALS: BP 126/86
== END 2019-03-27 22:35 | disposition home or self-care (01) | DRG 560 ==
LOC: MW.OBCHECK 19:12 → MW.OB 19:36 → OBSVTOIN 03-26 11:49 → MW.OB 03-26 17:04
PROVIDERS: ADMIT Obstetrics & Gynecology; ATTEND Obstetrics & Gynecology
PROC: 10E0XZZ Delivery of Products of Conception, External Approach (ICD-10-PCS; principal; 2019-03-26)
PROC: 3E0S3BZ Introduction of Anesthetic Agent into Epidural Space, Percutaneous Approach (ICD-10-PCS; 2019-03-26)
DX: O76 Abnormality in fetal heart rate and rhythm complicating labor and delivery (principal); Z88.8 Allergy status to other drugs, medicaments and biological substances; Z3A.38 38 weeks gestation of pregnancy; Z37.0 Single live birth
CPT/HCPCS: 01967; 36415; 51702; 59025; 59409; 82803; 85014; 85018; 85027; 86850; 86900; 86901; A9270-GY; J2590; J2795; J3010; J7120

== ENCOUNTER 2021-06-23 03:44 | Inpatient (IN) | payer BC ==
[2021-06-23] MEDS ORDERED: Nalbuphine 10 MG/1 ML Vial IVPUSH PRN (04:20)
[2021-06-23] MEDS ORDERED: Methylergonovine 0.2 MG/1 ML Amp IM PRN ×2 (04:20→13:32)
[2021-06-23] MEDS ORDERED: Misoprostol 200 MCG Tab PO PRN (04:20)
[2021-06-23] MEDS ORDERED: Sodium Chloride 0.9% 10 ML Syringe FLUSH PRN (04:20)
[2021-06-23] MEDS ORDERED: Ondansetron 4 MG/2 ML SDV IVPUSH PRN (04:20)
[2021-06-23] MEDS ORDERED: Tranexamic Acid 1,000 MG in Sodium Chloride 0.9% 100 ML IV PRN ×2 (04:20→13:32)
[2021-06-23] MEDS ORDERED: Butorphanol 1 MG/ML SDV IVPUSH PRN (04:20)
[2021-06-23] MEDS ORDERED: Sodium Chloride 0.9% 2.5 ML Syringe FLUSH PRN (04:20)
[2021-06-23] MEDS ORDERED: Lidocaine 1% 50 ML MDV INJECT PRN (04:20)
[2021-06-23] MEDS ORDERED: Sodium Chloride 0.9% 10 ML SDV IV PRN (04:20)
[2021-06-23] MEDS ORDERED: Carboprost Tromethamine 250 MCG/1 ML Amp IM PRN (04:20)
[2021-06-23] MEDS ORDERED: Water For Irrigation,Sterile 1,000 ML Container IRR PRN (04:20)
[2021-06-23] MEDS ORDERED: Misoprostol 25 MCG (1/4 of 100 MCG) Tab VAG PRN (04:22)
[2021-06-23] MEDS ORDERED: Terbutaline 1 MG/ML SDV SUBCUT PRN (04:22)
[2021-06-23] MEDS ORDERED: Oxytocin/0.9 % Sodium Chloride 30 UNIT/500 ML BAG IV SCH ×2 (04:30)
[2021-06-23] MEDS: Lactated Ringers 1,000 ML IV SCH ×3 (09:21→11:48)
[2021-06-23] MEDS ORDERED: fentaNYL 100 MCG/2 ML SDV ONE ×2 (10:28→11:10)
[2021-06-23] MEDS ORDERED: Ropivacaine HCl/PF 200 ML ONE (10:28)
--- NOTE | 2021-06-23 10:58 | PCM.PREANE ---
Preanesthetic Assessment - Anesthesia/Transfusion/Family Hx Anesthesia History: Prior Anesthesia Without Reaction Family History of Anesthesia Reaction: No Transfusion History: No Prior Transfusion(s) Intubation History: Unknown - Review of Systems General: No Symptoms Pulmonary: No Symptoms Cardiovascular: No Symptoms, Other (History of ventricular dysrhythmia. Radial pulse is regular at this time. She reports these episodes are self limiting.) - Physical Assessment NPO Status Date: 06/23/21 NPO Status Time: 09:00 Height: 1.7 m Weight: 99.79 kg ASA Class: 2 - Lab Values: Laboratory Last Values WBC 10.40 K/uL (4.0-11.0) 06/23/21 04:08 RBC 4.13 M/uL (4.30-5.90) L 06/23/21 04:08 Hgb 11.0 g/dL (12.0-16.0) L 06/23/21 04:08 Hct 32.5 % (36.0-46.0) L 06/23/21 04:08 MCV 78.7 fL (80.0-98.0) L 06/23/21 04:08 MCH 26.6 pg (27.0-32.0) L 06/23/21 04:08 MCHC 33.8 g/dL (31.0-37.0) 06/23/21 04:08 RDW Std Deviation 39.2 fl (28.0-62.0) 06/23/21 04:08 RDW Coeff of Aurelio 14 % (11.0-15.0) 06/23/21 04:08 Plt Count 164 K/uL (150-400) 06/23/21 04:08 MPV 10.40 fL (7.40-12.00) 06/23/21 04:08 Nucleated RBC % 0.0 /100WBC 06/23/21 04:08 Nucleated RBCs # 0 K/uL 06/23/21 04:08 SARS-CoV-2 RNA (TRENT) NEGATIVE (NEGATIVE) 06/23/21 04:15 Blood Type A POSITIVE 06/23/21 04:08 Antibody Screen NEGATIVE 06/23/21 04:08 - Allergies Allergies/Adverse Reactions: Allergies Allergy/AdvReac Type Severity Reaction Status Date / Time NSAIDS (Non-Steroidal Allergy Renal Verified 06/23/21 04:19 Anti-Inflamma Failure - Acknowledgements Anesthesia Type Planned: Epidural Pt an Appropriate Candidate for the Planned Anesthesia: Yes Alternatives and Risks of Anesthesia Discussed w Pt/Guardian: Yes Pt/Guardian Understands and Agrees with Anesthesia Plan: Yes PreAnesthesia Questionnaire HEENT History: Reports: Other (See Below) Other HEENT History: recurrent sinus infection or possible TMJ Cardiovascular History: Reports: Other (See Below) Other Cardiovascular History: ventricular trigeminy and bigeminy Respiratory History: Reports: Asthma Other Respiratory History: pt states when she stopped smoking her wheezing stopped so the doctor told her she probably never had asthma. Gastrointestinal History: Reports: None Genitourinary History: Reports: Acute Renal Failure Other Genitourinary History: Pt verbalized 50% kidney failure from torodol. allergy noted for nsaids. 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: Musculoskeletal History: Reports: None Neurological History: Reports: Migraines Psychiatric History: Reports: Depression Endocrine/Metabolic History: Reports: Obesity/BMI 30+ Hematologic History: Reports: None Immunologic History: Reports: None Oncologic (Cancer) History: Reports: None Dermatologic History: Reports: None - Infectious Disease History Infectious Disease History: Reports: Novel Coronavirus - Past Surgical History Head Surgeries/Procedures: Reports: None HEENT Surgical History: Reports: Oral Surgery Cardiovascular Surgical History: Reports: None Respiratory Surgical History: Reports: None GI Surgical History: Reports: Cholecystectomy Female Surgical History: Reports: None, Breast Implant Endocrine Surgical History: Reports: None Musculoskeletal Surgical History: Reports: Shoulder Surgery, Other (See Below) Other Musculoskeletal Surgeries/Procedures:: bunionectomy; removal of screws - SUBSTANCE USE Tobacco Use Status *Q: Former Tobacco User Tobacco Use Within Last Twelve Months: Cigarettes Recreational Drug Use History: No - HOME MEDS Home Medications: Home Meds Lansoprazole [Prevacid] 1 cap PO DAILY 03/25/19 [History] Pnv No.95/Ferrous Fum/Folic AC [ Tablet] 1 tab PO DAILY 03/25/19 [History] - CURRENT (IN HOUSE) MEDS Current Meds: Current Medications Butorphanol Tartrate (Butorphanol 1 Mg/Ml Sdv) 1 mg IVPUSH Q1H PRN PRN Reason: Pain (severe 7-10) Carboprost Tromethamine (Carboprost Tromethamine 250 Mcg/1 Ml Amp) 250 mcg IM ASDIRECTED PRN PRN Reason: Post Hemorrhage Oxytocin/Sodium Chloride (Oxytocin 30 Unit In Ns 0.9% 500 Ml Premix) 30 unit in 500 mls @ 500 mls/hr IV TITRATE AIXA Tranexamic Acid 1,000 mg/ (Sodium Chloride) 110 mls @ 660 mls/hr IV ONETIME PRN PRN Reason: Bleeding Lactated Ringer's (Ringers, Lactated) 1,000 mls @ 150 mls/hr IV ASDIRECTED AIXA Last Admin: 06/23/21 09:21 Dose: 150 mls/hr Documented by: Oxytocin/Sodium Chloride (Oxytocin 30 Unit In Ns 0.9% 500 Ml Premix) 30 unit in 500 mls @ 2 mls/hr IV TITRATE AIXA; Protocol Last Titration: 06/23/21 09:57 Dose: 4 munits/min, 4 mls/hr Documented by: Lidocaine HCl (Lidocaine 1% 50 Ml Mdv) 50 ml INJECT ONETIME PRN PRN Reason: Laceration repair Methylergonovine Maleate (Methylergonovine 0.2 Mg/1 Ml Amp) 0.2 mg IM ASDIRECTED PRN PRN Reason: Post Hemorrhage Misoprostol (Misoprostol 200 Mcg Tab) 200 mcg PO ONETIME PRN PRN Reason: Post Hemorrhage Misoprostol (Misoprostol 25 Mcg (1/4 Of 100 Mcg) Tab) 25 mcg VAG Q6H PRN PRN Reason: Cervical Ripening Last Admin: 06/23/21 04:37 Dose: 25 mcg Documented by: Nalbuphine HCl (Nalbuphine 10 Mg/1 Ml Vial) 10 mg IVPUSH Q1H PRN PRN Reason: Pain (severe 7-10) Ondansetron HCl (Ondansetron 4 Mg/2 Ml Sdv) 4 mg IVPUSH Q6H PRN PRN Reason: Nausea/Vomiting Sodium Chloride (Sodium Chloride 0.9% 10 Ml Syringe) 10 ml FLUSH ASDIRECTED PRN PRN Reason: Keep Vein Open Sodium Chloride (Sodium Chloride 0.9% 2.5 Ml Syringe) 2.5 ml FLUSH ASDIRECTED PRN PRN Reason: Keep Vein Open Sodium Chloride (Sodium Chloride 0.9% 10 Ml Sdv) 10 ml IV ASDIRECTED PRN PRN Reason: IV Use Sterile Water (Water For Irrigation,Sterile 1,000 Ml Container) 1,000 ml IRR ASDIRECTED PRN PRN Reason: delivery Terbutaline Sulfate (Terbutaline 1 Mg/Ml Sdv) 0.25 mg SUBCUT ASDIRECTED PRN PRN Reason: Tacysystole Discontinued Medications Fentanyl (Fentanyl 100 Mcg/2 Ml Sdv) Confirm Administered Dose 200 mcg .ROUTE .[employer] ONE Stop: 06/23/21 10:29 Ropivacaine (Naropin 0.2%) Confirm Administered Dose 200 mls @ as directed .ROUTE .[employer] ONE Stop: 06/23/21 10:29
--- NOTE | 2021-06-23 11:01 | PCM.PRNOTE ---
- Free Text/Narrative Note: Anes Note Patient requests epidural for L&D. Sitting position. Level L3-L4 midline approach. Sterile technique. Chloraprep scrub to lumbar area. Sterile fenestrated drape applied. Epidural space easily achieved using CHLOÉ technique. CHLOÉ at 4 cm. Cath threaded 5 cm with ease. Cath secured a t skin at 11 cm using sterile clear adhesive dressing. Test 1040 3 cc 1.5% lido with epi negative. 1043 Load 10 cc 0.2% ropivicaine wtih 1 mcg/cc fentanyl in slow divided doses. Polly well. 1046 Pump started with 190 cc same solution. Rate is 8 cc hr with 6 cc q 20 min prn bolus. Time with patient [id number]. Scooby Lara TILE FITTER
[2021-06-23] MEDS ORDERED: Lidocaine 2% with EPINEPHrine 1:200,000 20 ML SDV ONE (11:09)
--- NOTE | 2021-06-23 11:43 | PCM.PRNOTE ---
- Free Text/Narrative Note: 1155 Anes NOte Patient reports incomplete analgesia on left side. Patient placed on left side and epidural dosed with 6 cc 2% lido with epi. Scooby Lara CROSSING TENDER
--- NOTE | 2021-06-23 12:09 | PCM.PRNOTE ---
- Free Text/Narrative Note: Patient continues to report incomplete analgesia on left side. Epidural cath removed easily and complete. A new epidural was placed under sterile technique. Chloraprep scrub to lumbar area. Sterile fenestrated drape applied. Epidural placed at L2-L3 using CHLOÉ technique. CHLOÉ at 3 cm. Cathreaded with ease 5 cm. Cath secured a t skin at 11 cm using steril clear adhesive dressing. Test 1201 3 cc 1.5% lido with epi negative. 1204 Load 5 cc 2% lido with epi. 1208 Pump restarted at same rate. Polly well. Time with patient [id number] Scooby Lara CRNA
--- NOTE | 2021-06-23 13:30 | PCM.DEL ---
L & D Note - General Info Date of Service: 06/23/21 Mother's Due Date: 06/30/21 - Delivery Note Labor: Augmented by ARM, Induced by Oxytocin Cervical Ripening Method: Misoprostil Delivery Outcome: Livebirth Delivery Method: Spontaneous Vaginal Delivery-Single Infant Delivery Mode: Spontaneous Presentation: Left Occiput Anterior (TYSON) Nuchal Cord: None Prep: Other Anesthesia Type: Epidural Episiotomy Type: None Laceration: None Placenta: Intact, Spontaneous Cord: 3 Vessels Estimated Blood Loss: 200 Resuscitation Needed: No Ferdinand: Suctioned Score 1 min: 8 Score 5 min: 9 - General Info Date of Service: 06/23/21 - Patient Data Weight - Most Recent: 99.79 kg I&O - Last 24 Hours: Intake & Output 06/22/21 06/23/21 06/23/21 22:59 06:59 14:59 Intake Total 1999 Balance 1999 Lab Results Last 24 Hours: Laboratory Results - last 24 hr 06/23/21 06/23/21 06/23/21 Range/Units 04:08 04:08 04:15 WBC 10.40 (4.0-11.0) K/uL RBC 4.13 L (4.30-5.90) M/uL Hgb 11.0 L (12.0-16.0) g/dL Hct 32.5 L (36.0-46.0) % MCV 78.7 L (80.0-98.0) fL MCH 26.6 L (27.0-32.0) pg MCHC 33.8 (31.0-37.0) g/dL RDW Std Deviation 39.2 (28.0-62.0) fl RDW Coeff of Aurelio 14 (11.0-15.0) % Plt Count 164 (150-400) K/uL MPV 10.40 (7.40-12.00) fL Nucleated RBC % 0.0 /100WBC Nucleated RBCs # 0 K/uL SARS-CoV-2 RNA (TRENT) NEGATIVE (NEGATIVE) Blood Type A POSITIVE Antibody Screen NEGATIVE Med Orders - Current: Current Medications Butorphanol Tartrate (Butorphanol 1 Mg/Ml Sdv) 1 mg IVPUSH Q1H PRN PRN Reason: Pain (severe 7-10) Carboprost Tromethamine (Carboprost Tromethamine 250 Mcg/1 Ml Amp) 250 mcg IM ASDIRECTED PRN PRN Reason: Post Hemorrhage Oxytocin/Sodium Chloride (Oxytocin 30 Unit In Ns 0.9% 500 Ml Premix) 30 unit in 500 mls @ 500 mls/hr IV TITRATE AIXA Tranexamic Acid 1,000 mg/ (Sodium Chloride) 110 mls @ 660 mls/hr IV ONETIME PRN PRN Reason: Bleeding Lactated Ringer's (Ringers, Lactated) 1,000 mls @ 150 mls/hr IV ASDIRECTED AIXA Last Admin: 06/23/21 11:48 Dose: 150 mls/hr Documented by: Oxytocin/Sodium Chloride (Oxytocin 30 Unit In Ns 0.9% 500 Ml Premix) 30 unit in 500 mls @ 2 mls/hr IV TITRATE AIXA; Protocol Last Titration: 06/23/21 09:57 Dose: 4 munits/min, 4 mls/hr Documented by: Lidocaine HCl (Lidocaine 1% 50 Ml Mdv) 50 ml INJECT ONETIME PRN PRN Reason: Laceration repair Methylergonovine Maleate (Methylergonovine 0.2 Mg/1 Ml Amp) 0.2 mg IM ASDIRECTED PRN PRN Reason: Post Hemorrhage Misoprostol (Misoprostol 200 Mcg Tab) 200 mcg PO ONETIME PRN PRN Reason: Post Hemorrhage Misoprostol (Misoprostol 25 Mcg (1/4 Of 100 Mcg) Tab) 25 mcg VAG Q6H PRN PRN Reason: Cervical Ripening Last Admin: 06/23/21 04:37 Dose: 25 mcg Documented by: Nalbuphine HCl (Nalbuphine 10 Mg/1 Ml Vial) 10 mg IVPUSH Q1H PRN PRN Reason: Pain (severe 7-10) Ondansetron HCl (Ondansetron 4 Mg/2 Ml Sdv) 4 mg IVPUSH Q6H PRN PRN Reason: Nausea/Vomiting Sodium Chloride (Sodium Chloride 0.9% 10 Ml Syringe) 10 ml FLUSH ASDIRECTED PRN PRN Reason: Keep Vein Open Sodium Chloride (Sodium Chloride 0.9% 2.5 Ml Syringe) 2.5 ml FLUSH ASDIRECTED PRN PRN Reason: Keep Vein Open Sodium Chloride (Sodium Chloride 0.9% 10 Ml Sdv) 10 ml IV ASDIRECTED PRN PRN Reason: IV Use Sterile Water (Water For Irrigation,Sterile 1,000 Ml Container) 1,000 ml IRR ASDIRECTED PRN PRN Reason: delivery Terbutaline Sulfate (Terbutaline 1 Mg/Ml Sdv) 0.25 mg SUBCUT ASDIRECTED PRN PRN Reason: Tacysystole Discontinued Medications Fentanyl (Fentanyl 100 Mcg/2 Ml Sdv) Confirm Administered Dose 200 mcg .ROUTE .STK-MED ONE Stop: 06/23/21 10:29 Fentanyl (Fentanyl 100 Mcg/2 Ml Sdv) Confirm Administered Dose 100 mcg .ROUTE .STK-MED ONE Stop: 06/23/21 11:11 Ropivacaine (Naropin 0.2%) Confirm Administered Dose 200 mls @ as directed .ROUTE .STK-MED ONE Stop: 06/23/21 10:29 Lidocaine/Epinephrine (Lidocaine 2% With Epinephrine 1:200,000 20 Ml Sdv) Confirm Administered Dose 20 ml .ROUTE .STK-MED ONE Stop: 06/23/21 11:10 - Exam Urinary Catheter Total Time: 0Days 0Hours - Problem List & Annotations (1) Vaginal delivery SNOMED Code(s): 052110725 Code(s): O80 - ENCOUNTER FOR FULL-TERM UNCOMPLICATED DELIVERY Status: Acute Current Visit: No - Problem List Review Problem List Initiated/Reviewed/Updated: Yes - My Orders Last 24 Hours: My Active Orders 06/23/21 03:45 Patient Status [ADT] Routine 06/23/21 04:20 Heart Tones [RC] CONTINUOUS Non Stress Test [RC] PER UNIT ROUTINE May Shower [RC] ASDIRECTED Notify Provider [RC] PRN Up ad [place] [RC] ASDIRECTED Vaginal Exam [RC] PRN Vital Signs [RC] PER UNIT ROUTINE Butorphanol [Stadol] 1 mg IVPUSH Q1H PRN Carboprost Tromethamine [Hemabate DS] 250 mcg IM ASDIRECTED PRN Lidocaine 1% [Xylocaine 1%] 50 ml INJECT ONETIME PRN Methylergonovine [Methergine] 0.2 mg IM ASDIRECTED PRN Nalbuphine [Nubain] 10 mg IVPUSH Q1H PRN Ondansetron [Zofran] 4 mg IVPUSH Q6H PRN Sodium Chloride 0.9% [Normal Saline] 10 ml IV ASDIRECTED PRN Sodium Chloride 0.9% [Saline Flush] 10 ml FLUSH ASDIRECTED PRN Sodium Chloride 0.9% [Saline Flush] 2.5 ml FLUSH ASDIRECTED PRN Tranexamic Acid [Cyklokapron] 1,000 mg Sodium Chloride 0.9% [Normal Saline] 100 ml IV ONETIME Water For Irrigation,Sterile [Sterile Water for Irrigation] 1,000 ml IRR ASDIRECTED PRN miSOPROStoL [Cytotec] 200 mcg PO ONETIME PRN Scalp Electrode [WOMSER] Per Unit Routine Peripheral IV Insertion Adult [OM.PC] Routine Resuscitation Status Routine 06/23/21 04:22 Bedrest Bathroom Privileges [RC] ASDIRECTED Communication Order [RC] ASDIRECTED Communication Order [RC] ASDIRECTED Communication Order [RC] ASDIRECTED Notify Provider [RC] PRN Notify Provider [RC] PRN Notify Provider [RC] STAT Oxygen Therapy [RC] ASDIRECTED Vaginal Exam [RC] PRN Vital Signs [RC] PER UNIT ROUTINE Terbutaline [Brethine] 0.25 mg SUBCUT ASDIRECTED PRN miSOPROStoL [Cytotec] 25 mcg VAG Q6H PRN 06/23/21 04:30 Lactated Ringers [Ringers, Lactated] 1,000 ml IV ASDIRECTED Oxytocin/0.9 % Sodium Chloride [Oxytocin 30 Unit in NS 0.9% 500 ML Premix] 30 unit in 500 ml IV TITRATE Oxytocin/0.9 % Sodium Chloride [Oxytocin 30 Unit in NS 0.9% 500 ML Premix] 30 unit in 500 ml IV TITRATE Medication Administration Instruction [OM.PC] Q3H 06/23/21 09:24 RPR (SYPHILIS SERO) W/ RFLX [REF] Routine
[2021-06-23] MEDS ORDERED: Benzocaine/Menthol 20%-0.5% Spray 78 GM Cannister TOP PRN (13:32)
[2021-06-23] MEDS ORDERED: Lanolin 100% Cream 7 GM Tube TOP PRN (13:32)
[2021-06-23] MEDS ORDERED: Acetaminophen 500 MG Tab PO PRN (13:32)
[2021-06-23] MEDS ORDERED: Witch Hazel Medicated Pads 40/Jar TOP PRN (13:32)
[2021-06-23] MEDS ORDERED: Bisacodyl 10 MG Supp RECTAL PRN (13:32)
--- NOTE | 2021-06-23 16:12 | OR ---
SURGEON: Radha Ty M.D. DATE OF PROCEDURE: 06/23/2021 PREOPERATIVE DIAGNOSES: 1. 39-week intrauterine . 2. Advanced maternal age. 3. Lives remote from the hospital. 4. Skin tag. POSTOPERATIVE DIAGNOSES: 1. 39-week intrauterine . 2. Advanced maternal age. 3. Lives remote from the hospital. 4. Skin tag. PROCEDURES: 1. Cytotec and Pitocin induction of labor. 2. Artificial rupture of membranes. 3. Term spontaneous vaginal delivery. 4. Removal of tag. PRIMARY SURGEON: Radha Ty M.D. ANESTHESIA: Epidural. ESTIMATED BLOOD LOSS: Less than 300 mL. FINDINGS: 1. Liveborn female. 2. scores of 8 and 9. 3. Weight is pending at the time of dictation. 4. Placenta delivered spontaneously, Massey intact with three vessels. Perineum intact. COMPLICATIONS: None known. DISPOSITION: Mother and baby in LDR in good condition. BRIEF HISTORY: This is a 35-year-old female. She is G3, P2-0-0-2. She presents at 39 weeks gestation for induction of labor. She received a single dose of Cytotec, initially 1 cm and thick. 4 hours later, she was 2 cm, 30% effaced, -2 station. Artificial rupture of membranes was performed with clear fluid noted. Pitocin was initiated up to a maximum of 4 milliunits per minute. She had category 1 heart tones throughout labor. She received an epidural for pain control. She progressed to complete. DESCRIPTION OF PROCEDURE: With the patient in dorsal lithotomy position, the patient pushed over a 10- minute time period to a 5+ station, at which time the head was delivered spontaneously and atraumatically over the perineum with support, with subsequent delivery of the 's shoulders and body without any difficulty. The infant was bulb-suctioned by nose and mouth, and after 1 minute, the cord was doubly clamped and cut and the infant was handed to the mother in the presence of the nurse attending delivery. The infant is a liveborn female, scores of 8 and 9, weight is pending at the time of dictation. Cord blood was collected for cord ABGs as well as routine cord blood sampling. Pitocin was initiated after delivery of the infant to assist with delivery of the placenta which was delivered spontaneously, Massey intact, with three vessels. Upon inspection of the pelvis and perineum, there were no periurethral, vaginal sidewall, cervical, rectal, or perineal lacerations. EBL was less than 300 mL. After delivery of the placenta, attention was turned to the right inner thigh. There was a small tag that the patient had requested to be removed, and it was elevated, snipped with iris scissors at the base, and sent to Pathology. There was a small tag on the opposite side that was also trimmed. These were very small and both sent to Pathology. There was minimal bleeding. The area was covered with a Band-Aid. Final sponge, needle, and instrument counts were correct. There were no known complications. Mother and baby are in LDR in good condition. RAFAT AMADOR /[id number]
[2021-06-23] MEDS: Acetaminophen 500 MG Tab PO PRN (17:59)
[2021-06-23] MEDS: Docusate Sodium 100 MG Cap PO PRN (20:25)
[2021-06-23] MEDS: Acetaminophen/oxyCODONE 325-5 MG Tab PO PRN (20:25)
[2021-06-24] MEDS: Acetaminophen 500 MG Tab PO PRN ×2 (00:02→17:52)
[2021-06-24] MEDS: Acetaminophen/oxyCODONE 325-5 MG Tab PO PRN ×4 (00:04→21:40)
--- NOTE | 2021-06-24 10:08 | PCM.PNPP ---
- General Info Date of Service: 06/24/21 Subjective Update: Patient doing well. Minimal bleeding/pain. Denies dizziness, fevers/chills. struggling with latch. Functional Status: Reports: Pain Controlled, Tolerating Diet, Ambulating, Urinating - Review of Systems General: Reports: No Symptoms HEENT: Reports: No Symptoms Pulmonary: Reports: No Symptoms Cardiovascular: Reports: No Symptoms Gastrointestinal: Reports: No Symptoms Genitourinary: Reports: No Symptoms Musculoskeletal: Reports: No Symptoms Skin: Reports: No Symptoms Neurological: Reports: No Symptoms Psychiatric: Reports: No Symptoms - Patient Data Vital Signs - Most Recent: Last Vital Signs Temp 35.8 C L 06/24/21 08:18 Pulse 70 06/24/21 08:18 Resp 18 06/24/21 08:18 BP 110/63 06/24/21 08:18 Pulse Ox 98 06/24/21 08:18 Weight - Most Recent: 99.79 kg Lab Results - Last 24 Hours: Laboratory Results - last 24 hr 06/23/21 06/24/21 Range/Units 13:07 06:40 Hgb 9.9 L (12.0-16.0) g/dL Hct 29.9 L (36.0-46.0) % Cord ABG pH 7.313 (7.18-7.38) Cord ABG Base Excess -6 (-10--2) Cord VBG pH 7.310 (7.25-7.45) Cord VBG Base Excess -7 (-10--2) Med Orders - Current: Current Medications Acetaminophen (Acetaminophen 500 Mg Tab) 500 mg PO Q4H PRN PRN Reason: Pain (mild 1-3) Last Admin: 06/24/21 06:05 Dose: 500 mg Documented by: Acetaminophen (Acetaminophen 500 Mg Tab) 1,000 mg PO Q4H PRN PRN Reason: Pain (mild 1-3) Last Admin: 06/24/21 00:02 Dose: 1,000 mg Documented by: Benzocaine/Menthol (Benzocaine/Menthol 20%-0.5% [place] 78 Gm Cannister) 78 gm TOP ASDIRECTED PRN PRN Reason: Perineal Comfort Measure Last Admin: 06/23/21 15:42 Dose: 1 spray Documented by: Bisacodyl (Bisacodyl 10 Mg Supp) 10 mg RECTAL ONETIME PRN PRN Reason: Constipation Docusate Sodium (Docusate Sodium 100 Mg Cap) 100 mg PO Q12H PRN PRN Reason: Constipation Last Admin: 06/23/21 20:25 Dose: 100 mg Documented by: Emollient Ointment (Lanolin 100% Cream 7 Gm Tube) 0 gm TOP ASDIRECTED PRN PRN Reason: Sore Nipples Last Admin: 06/23/21 15:41 Dose: 7 applic Documented by: Tranexamic Acid 1,000 mg/ (Sodium Chloride) 110 mls @ 660 mls/hr IV ONETIME PRN PRN Reason: Bleeding Methylergonovine Maleate (Methylergonovine 0.2 Mg/1 Ml Amp) 0.2 mg IM ONETIME PRN PRN Reason: Excessive Vaginal Bleeding Oxycodone/Acetaminophen (Acetaminophen/Oxycodone 325-5 Mg Tab) 1 tab PO Q4H PRN PRN Reason: Pain (moderate 4-6) Last Admin: 06/24/21 06:06 Dose: 1 tab Documented by: Puma Rodriguez (Puma Rodriguez Medicated Pads 40/Jar) 1 pad TOP ASDIRECTED PRN PRN Reason: comfort care Last Admin: 06/23/21 15:38 Dose: 1 tub Documented by: Discontinued Medications Butorphanol Tartrate (Butorphanol 1 Mg/Ml Sdv) 1 mg IVPUSH Q1H PRN PRN Reason: Pain (severe 7-10) Carboprost Tromethamine (Carboprost Tromethamine 250 Mcg/1 Ml Amp) 250 mcg IM ASDIRECTED PRN PRN Reason: Post Hemorrhage Fentanyl (Fentanyl 100 Mcg/2 Ml Sdv) Confirm Administered Dose 200 mcg .ROUTE .STK-MED ONE Stop: 06/23/21 10:29 Fentanyl (Fentanyl 100 Mcg/2 Ml Sdv) Confirm Administered Dose 100 mcg .ROUTE .STK-MED ONE Stop: 06/23/21 11:11 Oxytocin/Sodium Chloride (Oxytocin 30 Unit In Ns 0.9% 500 Ml Premix) 30 unit in 500 mls @ 500 mls/hr IV TITRATE AIXA Tranexamic Acid 1,000 mg/ (Sodium Chloride) 110 mls @ 660 mls/hr IV ONETIME PRN PRN Reason: Bleeding Lactated Ringer's (Ringers, Lactated) 1,000 mls @ 150 mls/hr IV ASDIRECTED AIAX Last Admin: 06/23/21 11:48 Dose: 150 mls/hr Documented by: Oxytocin/Sodium Chloride (Oxytocin 30 Unit In Ns 0.9% 500 Ml Premix) 30 unit in 500 mls @ 2 mls/hr IV TITRATE AIXA; Protocol Last Titration: 06/23/21 13:07 Dose: 999 munits/min, 999 mls/hr Documented by: Ropivacaine (Naropin 0.2%) Confirm Administered Dose 200 mls @ as directed .ROUTE .[employer] ONE Stop: 06/23/21 10:29 Lidocaine HCl (Lidocaine 1% 50 Ml Mdv) 50 ml INJECT ONETIME PRN PRN Reason: Laceration repair Lidocaine/Epinephrine (Lidocaine 2% With Epinephrine 1:200,000 20 Ml Sdv) Confirm Administered Dose 20 ml .ROUTE .[employer] ONE Stop: 06/23/21 11:10 Methylergonovine Maleate (Methylergonovine 0.2 Mg/1 Ml Amp) 0.2 mg IM ASDIRECTED PRN PRN Reason: Post Hemorrhage Misoprostol (Misoprostol 200 Mcg Tab) 200 mcg PO ONETIME PRN PRN Reason: Post Hemorrhage Misoprostol (Misoprostol 25 Mcg (1/4 Of 100 Mcg) Tab) 25 mcg VAG Q6H PRN PRN Reason: Cervical Ripening Last Admin: 06/23/21 04:37 Dose: 25 mcg Documented by: Nalbuphine HCl (Nalbuphine 10 Mg/1 Ml Vial) 10 mg IVPUSH Q1H PRN PRN Reason: Pain (severe 7-10) Ondansetron HCl (Ondansetron 4 Mg/2 Ml Sdv) 4 mg IVPUSH Q6H PRN PRN Reason: Nausea/Vomiting Sodium Chloride (Sodium Chloride 0.9% 10 Ml Syringe) 10 ml FLUSH ASDIRECTED PRN PRN Reason: Keep Vein Open Sodium Chloride (Sodium Chloride 0.9% 2.5 Ml Syringe) 2.5 ml FLUSH ASDIRECTED PRN PRN Reason: Keep Vein Open Sodium Chloride (Sodium Chloride 0.9% 10 Ml Sdv) 10 ml IV ASDIRECTED PRN PRN Reason: IV Use Sterile Water (Water For Irrigation,Sterile 1,000 Ml Container) 1,000 ml IRR ASDIRECTED PRN PRN Reason: delivery Last Admin: 06/23/21 15:42 Dose: 1,000 ml Documented by: Terbutaline Sulfate (Terbutaline 1 Mg/Ml Sdv) 0.25 mg SUBCUT ASDIRECTED PRN PRN Reason: Tacysystole - Interaction Disposition, : in Room with Family Interaction: Holding Infant Infant Feeding: Attempted ; Nursed Fair/Poor Support Person: - Recovery Exam Fundal Tone: Firm Fundal Level: 1 Fingerbreadths Below Umbilicus Fundal Placement: Midline Lochia Amount: Small Lochia Color: Rubra/Red Bladder Status: Voiding Urinary Elimination: Voided - Exam General: Alert, Oriented Neck: Supple Lungs: Normal Respiratory Effort GI/Abdominal Exam: Soft, Non-Tender Extremities: Non-Tender, No Pedal Edema Skin: Warm, Dry, Intact Neurological: No New Focal Deficit Psy/Mental Status: Alert, Normal Affect, Normal Mood - Problem List & Annotations (1) Vaginal delivery SNOMED Code(s): 733907118 Code(s): O80 - ENCOUNTER FOR FULL-TERM UNCOMPLICATED DELIVERY Status: Acute Current Visit: No - Problem List Review Problem List Initiated/Reviewed/Updated: Yes - My Orders Last 24 Hours: My Active Orders 06/23/21 20:06 Acetaminophen/oxyCODONE [Percocet 325-5 MG] 1 tab PO Q4H PRN - Assessment Assessment:: 35yo s/p , PPD#1 - Plan Plan:: Continue routine cares. Plan to discharge home tomorrow. Encouraged to work with nursing staff on latch.
[2021-06-24] MEDS: Docusate Sodium 100 MG Cap PO PRN (21:40)
[2021-06-25] MEDS: Acetaminophen 500 MG Tab PO PRN (05:50)
[2021-06-25 06:14] VITALS: PULSE 67
[2021-06-25 08:16] VITALS: BP 125/74
--- NOTE | 2021-06-25 09:40 | PCM.PNPP ---
- General Info Date of Service: 06/25/21 Subjective Update: Latch greatly improved overnight. Back pain better with heating pad. Minimal lochia. Functional Status: Reports: Pain Controlled, Tolerating Diet, Ambulating, Urinating - Review of Systems General: Reports: No Symptoms HEENT: Reports: No Symptoms Pulmonary: Reports: No Symptoms Cardiovascular: Reports: No Symptoms Gastrointestinal: Reports: No Symptoms Genitourinary: Reports: No Symptoms Musculoskeletal: Reports: No Symptoms Skin: Reports: No Symptoms Neurological: Reports: No Symptoms Psychiatric: Reports: No Symptoms - Patient Data Vital Signs - Most Recent: Last Vital Signs Temp 36.8 C 06/25/21 08:15 Pulse 67 06/25/21 08:15 Resp 16 06/25/21 08:15 BP 125/74 06/25/21 08:15 Pulse Ox 97 06/25/21 08:15 Weight - Most Recent: 99.79 kg Med Orders - Current: Current Medications Acetaminophen (Acetaminophen 500 Mg Tab) 500 mg PO Q4H PRN PRN Reason: Pain (mild 1-3) Last Admin: 06/24/21 06:05 Dose: 500 mg Documented by: Acetaminophen (Acetaminophen 500 Mg Tab) 1,000 mg PO Q4H PRN PRN Reason: Pain (mild 1-3) Last Admin: 06/25/21 05:50 Dose: 1,000 mg Documented by: Benzocaine/Menthol (Benzocaine/Menthol 20%-0.5% [place] 78 Gm Cannister) 78 gm TOP ASDIRECTED PRN PRN Reason: Perineal Comfort Measure Last Admin: 06/23/21 15:42 Dose: 1 spray Documented by: Bisacodyl (Bisacodyl 10 Mg Supp) 10 mg RECTAL ONETIME PRN PRN Reason: Constipation Docusate Sodium (Docusate Sodium 100 Mg Cap) 100 mg PO Q12H PRN PRN Reason: Constipation Last Admin: 06/24/21 21:40 Dose: 100 mg Documented by: Emollient Ointment (Lanolin 100% Cream 7 Gm Tube) 0 gm TOP ASDIRECTED PRN PRN Reason: Sore Nipples Last Admin: 06/23/21 15:41 Dose: 7 applic Documented by: Tranexamic Acid 1,000 mg/ (Sodium Chloride) 110 mls @ 660 mls/hr IV ONETIME PRN PRN Reason: Bleeding Methylergonovine Maleate (Methylergonovine 0.2 Mg/1 Ml Amp) 0.2 mg IM ONETIME PRN PRN Reason: Excessive Vaginal Bleeding Oxycodone/Acetaminophen (Acetaminophen/Oxycodone 325-5 Mg Tab) 1 tab PO Q4H PRN PRN Reason: Pain (moderate 4-6) Last Admin: 06/24/21 21:40 Dose: 1 tab Documented by: Puma Rodriguez (Puma Rodriguez Medicated Pads 40/Jar) 1 pad TOP ASDIRECTED PRN PRN Reason: comfort care Last Admin: 06/23/21 15:38 Dose: 1 tub Documented by: Discontinued Medications Butorphanol Tartrate (Butorphanol 1 Mg/Ml Sdv) 1 mg IVPUSH Q1H PRN PRN Reason: Pain (severe 7-10) Carboprost Tromethamine (Carboprost Tromethamine 250 Mcg/1 Ml Amp) 250 mcg IM ASDIRECTED PRN PRN Reason: Post Hemorrhage Fentanyl (Fentanyl 100 Mcg/2 Ml Sdv) Confirm Administered Dose 200 mcg .ROUTE .STK-MED ONE Stop: 06/23/21 10:29 Fentanyl (Fentanyl 100 Mcg/2 Ml Sdv) Confirm Administered Dose 100 mcg .ROUTE .STK-MED ONE Stop: 06/23/21 11:11 Oxytocin/Sodium Chloride (Oxytocin 30 Unit In Ns 0.9% 500 Ml Premix) 30 unit in 500 mls @ 500 mls/hr IV TITRATE AIXA Tranexamic Acid 1,000 mg/ (Sodium Chloride) 110 mls @ 660 mls/hr IV ONETIME PRN PRN Reason: Bleeding Lactated Ringer's (Ringers, Lactated) 1,000 mls @ 150 mls/hr IV ASDIRECTED AIXA Last Admin: 06/23/21 11:48 Dose: 150 mls/hr Documented by: Oxytocin/Sodium Chloride (Oxytocin 30 Unit In Ns 0.9% 500 Ml Premix) 30 unit in 500 mls @ 2 mls/hr IV TITRATE AIXA; Protocol Last Titration: 06/23/21 13:07 Dose: 999 munits/min, 999 mls/hr Documented by: Ropivacaine (Naropin 0.2%) Confirm Administered Dose 200 mls @ as directed .ROUTE .STK-MED ONE Stop: 06/23/21 10:29 Lidocaine HCl (Lidocaine 1% 50 Ml Mdv) 50 ml INJECT ONETIME PRN PRN Reason: Laceration repair Lidocaine/Epinephrine (Lidocaine 2% With Epinephrine 1:200,000 20 Ml Sdv) Confirm Administered Dose 20 ml .ROUTE .STK-MED ONE Stop: 06/23/21 11:10 Methylergonovine Maleate (Methylergonovine 0.2 Mg/1 Ml Amp) 0.2 mg IM ASDIRECTED PRN PRN Reason: Post Hemorrhage Misoprostol (Misoprostol 200 Mcg Tab) 200 mcg PO ONETIME PRN PRN Reason: Post Hemorrhage Misoprostol (Misoprostol 25 Mcg (1/4 Of 100 Mcg) Tab) 25 mcg VAG Q6H PRN PRN Reason: Cervical Ripening Last Admin: 06/23/21 04:37 Dose: 25 mcg Documented by: Nalbuphine HCl (Nalbuphine 10 Mg/1 Ml Vial) 10 mg IVPUSH Q1H PRN PRN Reason: Pain (severe 7-10) Ondansetron HCl (Ondansetron 4 Mg/2 Ml Sdv) 4 mg IVPUSH Q6H PRN PRN Reason: Nausea/Vomiting Sodium Chloride (Sodium Chloride 0.9% 10 Ml Syringe) 10 ml FLUSH ASDIRECTED PRN PRN Reason: Keep Vein Open Sodium Chloride (Sodium Chloride 0.9% 2.5 Ml Syringe) 2.5 ml FLUSH ASDIRECTED PRN PRN Reason: Keep Vein Open Sodium Chloride (Sodium Chloride 0.9% 10 Ml Sdv) 10 ml IV ASDIRECTED PRN PRN Reason: IV Use Sterile Water (Water For Irrigation,Sterile 1,000 Ml Container) 1,000 ml IRR ASDIRECTED PRN PRN Reason: delivery Last Admin: 06/23/21 15:42 Dose: 1,000 ml Documented by: Terbutaline Sulfate (Terbutaline 1 Mg/Ml Sdv) 0.25 mg SUBCUT ASDIRECTED PRN PRN Reason: Tacysystole - Infant Interaction Disposition, : [place] in Room with Family Infant Interaction: Holding Infant Feeding: Attempted ; Nursed Fair/Poor Support Person: - Recovery Exam Fundal Tone: Firm Fundal Level: 1 Fingerbreadths Above Umbilicus Fundal Placement: Midline Lochia Amount: Scant Lochia Color: Rubra/Red Perineum Description: Intact, Minimal Bruising/Swelling Episiotomy/Laceration: None Bladder Status: Voiding Urinary Elimination: Voided - Exam General: Alert, Oriented Neck: Supple Lungs: Normal Respiratory Effort GI/Abdominal Exam: Soft, Non-Tender Extremities: Non-Tender, No Pedal Edema Skin: Warm, Dry, Intact Neurological: No New Focal Deficit Psy/Mental Status: Alert, Normal Affect, Normal Mood - Problem List & Annotations (1) Vaginal delivery SNOMED Code(s): 962070344 Code(s): O80 - ENCOUNTER FOR FULL-TERM UNCOMPLICATED DELIVERY Status: Acute Current Visit: No - Problem List Review Problem List Initiated/Reviewed/Updated: Yes - My Orders Last 24 Hours: My Active Orders 06/25/21 09:34 Ready for Discharge [RC] PER UNIT ROUTINE - Assessment Assessment:: 35yo s/p , PPD#2 - Plan Plan:: Plan to discharge home today, baby currently receiving bilirubin treatment. All questions answered. Reviewed discharge instructions/precautions.
== END 2021-06-25 16:28 | disposition home or self-care (01) | DRG 560 ==
LOC: MW.OBCHECK 03:44 → MW.OB 03:45 → MW.OBCHECK 03:50 → MW.OB 03:52 → MW.OBCHECK 03:52 → OBSVTOIN 13:32 → MW.OB 16:00
PROVIDERS: ADMIT Obstetrics & Gynecology; ATTEND Obstetrics & Gynecology
PROC: 10E0XZZ Delivery of Products of Conception, External Approach (ICD-10-PCS; principal; 2021-06-23)
PROC: 10907ZC Drainage of Amniotic Fluid, Therapeutic from Products of Conception, Via Natural or Artificial Opening (ICD-10-PCS; 2021-06-23)
PROC: 3E0P7VZ Introduction of Hormone into Female Reproductive, Via Natural or Artificial Opening (ICD-10-PCS; 2021-06-23)
PROC: 3E033VJ Introduction of Other Hormone into Peripheral Vein, Percutaneous Approach (ICD-10-PCS; 2021-06-23)
PROC: 0HBHXZZ Excision of Right Upper Leg Skin, External Approach (ICD-10-PCS; 2021-06-23)
PROC: 3E0R3BZ Introduction of Anesthetic Agent into Spinal Canal, Percutaneous Approach (ICD-10-PCS; 2021-06-23)
PROC: 00HU33Z Insertion of Infusion Device into Spinal Canal, Percutaneous Approach (ICD-10-PCS; 2021-06-23)
DX: O99.72 Diseases of the skin and subcutaneous tissue complicating childbirth (principal); L91.8 Other hypertrophic disorders of the skin; Z37.0 Single live birth; Z20.822 Contact with and (suspected) exposure to COVID-19; Z3A.39 39 weeks gestation of pregnancy
CPT/HCPCS: 36415; 51702; 59025; 59409; 82803; 85014; 85018; 85027; 86592; 86850; 86900; 86901; A9270-GY; J2590; J2795; J3010; J7120; U0002